=== PATIENT | female | born 1995 | race Caucasian/White ===

== ENCOUNTER 2024-04-26 14:06 | Outpatient (CLI) | payer OTHER, SELFPAY | END 2024-04-26 14:07 | disposition home or self-care (01) | LOC: ANHLAB 14:15 | PROVIDERS: Visit Provider Advanced Practice Midwife | DX: O20.0 Threatened abortion (principal); Z3A.00 Weeks of gestation of pregnancy not specified | CPT/HCPCS: 36415; 84702; 86850; 86900; 86901 ==

== ENCOUNTER 2024-04-28 04:46 | Emergency (ER) | payer OTHER, SELFPAY ==
[2024-04-28] VITALS (13 sets, daily range): BP systolic 121–154; BP diastolic 77–93; PULSE 81–112; RESP 17–20; TEMP 37; O2SAT 97–100
--- NOTE | ~2024-04-28 | US_ITS ---
EXAMINATION: US OB <= 14 weeks fetus DATE: 04/28/2024 06:42 INDICATION: Vaginal spotting with previous episodes of sharp lower abdominal pain during first trimes ter . TECHNIQUE: Real-time pelvic ultrasound utilizing both a transvaginal and transabdominal probe was pe rformed. The interpreting radiologist was not present for the study. COMPARISON: None. FINDINGS: The uterus measures 8.3 x 4.4 x 5.4 cm. There is an intrauterine gestational sac. A yolk sac and fet al pole are identified. The crown rump length measures 8 mm, which correlates with an estimated gesta tional age of 6 weeks and 5 days. heart motion is identified measuring 110 beats per minute (bp m) by M-mode Doppler. The right ovary measures 2.9 x 1.7 x 1.8 cm. The left ovary measures 3.0 x 2.2 x 2.2 cm. 2.1 cm likel y corpus luteum cyst at the left ovary. Vascular flow seen at both ovaries on color Doppler. There is no free fluid in the pelvis. IMPRESSION: 1. Single living fetus with heart rate of 110 bpm. 2. Gestational age by ultrasound of 6 weeks 5 day(s) +/- 4 day(s) with ultrasound estimated date of delivery (CHARMAINE) of 12/17/2024. Reviewed, dictated and finalized at location A. IMPRESSION: 1. Single living fetus with heart rate of 110 bpm. 2. Gestational age by ultrasound of 6 weeks 5 day(s) +/- 4 day(s) with ultraso und estimated date of delivery (CHARMAINE) of 12/17/2024.
[2024-04-28 05:19] LABS: Basophils Percent Auto 0.6 % (0.2-1.2); Eosinophils Absolute Auto 0.1 K/mm3 (0-0.3); Eosinophils Percent Auto 1.8 % (0-4.4); Hematocrit 40.3 % (37.0-47.0); Hemoglobin 13.9 g/dL (12.0-15.0); Immature Granulocyte Absolute 0.01 K/mm3 (0.00-0.031); Immature Granulocyte Percent A 0.1 % (0-0.5); Lymphocytes Absolute Auto 1.82 K/mm3 (0.9-3.2); Lymphocytes Percent Auto 25.6 % (18.3-44.2); Mean Corpuscular HGB Conc 34.5 g/dl (32-36); Mean Corpuscular Volume 84.1 fl (80-100); Mean Platelet Volume 8.9 fl (7.4-10.4); Monocytes Absolute Auto 0.5 K/mm3 (0.1-0.6); Monocytes Percent Auto 6.9 % (2.6-8.5); Neutrophils Absolute Auto 4.6 K/mm3 (1.3-6.7); Platelet Count Result 288 k/mm3 (150-375); Red Blood Count 4.79 M/mm3 (4.2-5.4); Red Cell Distribution Width 12.4 % (11.5-14.5); White Blood Count 7.1 K/mm3 (4.5-10.0)
[2024-04-28 05:29] LABS: Prothrombin Time 13.3 Seconds (11.1-14.7)
[2024-04-28 05:30] LABS: Alanine Aminotransferase 20 U/L (6-35); Albumin Level 4.5 g/dL (3.5-5.1); Alkaline Phosphatase 57 U/L (38-126); Anion Gap 8 mmol/L (4-12); Aspartate Amino Transferase 19 U/L (14-36); Bilirubin,Total 0.8 mg/dL (0.2-1.3); Blood Urea Nitrogen 11 mg/dL (7-17); Calcium 9.2 mg/dL (8.4-10.2); Carbon Dioxide 22 mmol/L (22-30); Chloride 109 mmol/L (98-107); Estimated CRCL calculation 101 ml/min; Estimated Glomerular Filt Rate > 60; Glucose 106 mg/dL (65-110); Potassium 3.6 mmol/L (3.4-5.0); Sodium 139 mmol/L (137-145)
--- NOTE | 2024-04-28 05:30 | PC.NURSE ---
Attempted to find heart tones, unable to assess.
--- NOTE | 2024-04-28 05:41 | ED.GENADULT ---
HPI - General Adult General Chief complaint: Vaginal Bleeding Stated complaint: pain/vaginal bleeding/ 7wks Time Seen by Provider: 04/28/24 04:50 History of Present Illness HPI narrative: This is a 28-year-old female at 7 weeks gestation by last menstrual period presenting for vaginal bleeding in . Patient has been having spotting for the last week. However today she started to have more reddish blood. She is also having sharp needle-like pains in her lower abdomen. No passage of clots or tissues. No other complaints. Related Data Home Medications Medication Instructions Recorded Confirmed folic acid 20 mg capsule mg 04/28/24 Allergies Allergy/AdvReac Type Severity Reaction Status Date / Time No Known Allergies Allergy Verified 04/28/24 04:56 Exam Narrative: APPEARANCE: No apparent distress. Head: atraumatic. EYES: EOMI, NOSE: Atraumatic NECK: Trachea midline RESPIRATORY: No increased rate of breathing CARDIOVASCULAR: RRR, ABDOMINAL: soft nontender no guarding rebound MUSCULOSKELETAl: No obvious deformities NEURO: Alert. Moving 4/4 extremities SKIN:: Warm, dry. Normal color PSYCHIATRIC: Normal affect Course Vital Signs Vital signs: Vital Signs Temperature 98.6 F 04/28/24 04:53 Pulse Rate 112 H 04/28/24 04:53 Respiratory Rate 20 04/28/24 04:53 Blood Pressure 154/93 H 04/28/24 04:53 Pulse Oximetry 100 04/28/24 04:53 Oxygen Delivery Room Air 04/28/24 04:53 Temperature 98.6 F 04/28/24 04:53 Pulse Rate 81 04/28/24 07:11 Respiratory Rate 17 04/28/24 07:11 Blood Pressure 122/79 04/28/24 07:11 Pulse Oximetry 99 04/28/24 07:11 Oxygen Delivery Room Air 04/28/24 04:53 Medical Decision Making [facility] Narrative Medical decision making narrative: -Course: 28-year-old female presenting with vaginal bleeding in . HCT trending up from 6900 to 8200. Transvaginal ultrasound showed a single intrauterine fetus with a heart rate of 110. Dated at 6 weeks 5 days. Urine not indicative infection. Patient is blood type is A positive and does not require RhoGAM. patient will be discharged follow-up with her OBGYN. -DDX includes but is not limited to: Threatened miscarriage, miscarriage, demise -Independent interpretation of studies: labs reviewed within normal limits. -Shared decision making / Disposition: Signed out to the oncoming physician. Vital Signs Vital Signs: Vital Signs Temperature 98.6 F 04/28/24 04:53 Pulse Rate 112 H 04/28/24 04:53 Respiratory Rate 20 04/28/24 04:53 Blood Pressure 154/93 H 04/28/24 04:53 Pulse Oximetry 100 04/28/24 04:53 Oxygen Delivery Room Air 04/28/24 04:53 Temperature 98.6 F 04/28/24 04:53 Pulse Rate 81 04/28/24 07:11 Respiratory Rate 17 04/28/24 07:11 Blood Pressure 122/79 04/28/24 07:11 Pulse Oximetry 99 04/28/24 07:11 Oxygen Delivery Room Air 04/28/24 04:53 Lab Data 04/28/24 05:12 04/28/24 05:12 Labs: Lab Results 04/28/24 04/28/24 Range/Units 05:12 05:17 WBC 7.1 (4.5-10.0) K/mm3 RBC 4.79 (4.2-5.4) M/mm3 Hgb 13.9 (12.0-15.0) g/dL Hct 40.3 (37.0-47.0) % MCV 84.1 (80-100) fl MCH 29.0 (26-34) pg MCHC 34.5 (32-36) g/dl RDW 12.4 (11.5-14.5) % Plt Count 288 (150-375) k/mm3 MPV 8.9 (7.4-10.4) fl Immature Gran % (Auto) 0.1 (0-0.5) % Neut % (Auto) 65.0 (45.5-73.1) % Lymph % (Auto) 25.6 (18.3-44.2) % [place] % (Auto) 6.9 (2.6-8.5) % Eos % (Auto) 1.8 (0-4.4) % Baso % (Auto) 0.6 (0.2-1.2) % Lymph # (Auto) 1.82 (0.9-3.2) K/mm3 [place] # (Auto) 0.5 (0.1-0.6) K/mm3 Eos # (Auto) 0.1 (0-0.3) K/mm3 Baso # (Auto) 0.0 (0.0-0.1) K/mm3 Abs Immat Gran (auto) 0.01 (0.00-0.031) K/mm3 Absolute Neuts (auto) 4.6 (1.3-6.7) K/mm3 Absolute Nucleated RBC 0.000 (0.0-0.012) K/mm3 Nucleated RBC % 0.0 (0.0-0.2) % PT 13.3 (11.1-
[2024-04-28 05:57] LABS: Appearance Urine Cloudy (Clear); Bacteria Urine 1+ /hpf; Bilirubin Urine Negative (Negative); Blood Urine 3+ (Negative); Color Urine Dark Yellow (Yellow); Glucose Urine UA Negative (Negative); Ketones Urine Trace mg/dL (Negative); Leukocyte Esterase Ur Trace LEU/UL (Negative); Nitrate Urine Negative (Negative); Protein Urine 1+ mg/dL (Negative); RBC Urine >100 /hpf (0-2); Specific Grav Ur 1.028 (1.001-1.035); Squamous Epithelial Cell Urine Few /hpf (Few); WBC Urine 0-5 /hpf (0-3); pH Urine 5.5 (5.0-9.0)
[2024-04-28 05:58] LABS: Add Urine Microscopic? YES
== END 2024-04-28 07:48 | disposition home or self-care (01) ==
PROVIDERS: Emergency Provider Emergency Medicine
DX: O20.0 Threatened abortion (principal); Z3A.01 Less than 8 weeks gestation of pregnancy
CPT/HCPCS: 36415; 76801; 80053; 81001; 84702; 85025; 85461; 85610; 85730; 86850; 86900; 86901; 99284

== ENCOUNTER 2024-04-29 15:51 | Outpatient (CLI) | payer OTHER, SELFPAY | END 2024-04-29 15:52 | disposition home or self-care (01) | LOC: ANHLAB 15:54 | PROVIDERS: Visit Provider Advanced Practice Midwife | DX: O20.0 Threatened abortion (principal); Z3A.00 Weeks of gestation of pregnancy not specified | CPT/HCPCS: 36415; 84702 ==